=== PATIENT | female | born 1960 | race Caucasian/White ===

== ENCOUNTER → 2018-03-11 | Day surgery (SDC) | payer OTHER ==
[~2018-03-11] MED LIST: AMILODIPINE PO; BENOZEPRIL PO; CLONIDINE HCL0.1 M1 PO; METROPOLOL PO; NOVA MAX BLOOD1 EACH; NOVOLIN 70100 UNIT/1; [UNRECOGNIZED DRUG - OTHER] PO
== END | disposition home or self-care (01) ==
LOC: CIR.AMB 07:50
DX: S52.022A Displaced fracture of olecranon process without intraarticular extension of left ulna, initial encounter for closed fracture (principal); S52.122A Displaced fracture of head of left radius, initial encounter for closed fracture

== ENCOUNTER 2018-09-16 09:13 | Day surgery (SDC) | payer OTHER ==
[~2018-09-16 09:13] MED LIST changes: +KEPPRA500 MG PO; +[UNRECOGNIZED DRUG - OTHER]; +[UNRECOGNIZED DRUG - OTHER]; +[UNRECOGNIZED DRUG - OTHER]
== END 2018-09-16 16:50 | disposition home or self-care (01) ==
LOC: CIR.AMB 09:13
DX: M75.112 Incomplete rotator cuff tear or rupture of left shoulder, not specified as traumatic (principal); M75.22 Bicipital tendinitis, left shoulder; M75.02 Adhesive capsulitis of left shoulder